=== PATIENT | male | born 1955 | race Caucasian/White ===

== ENCOUNTER 2021-01-10 07:54 | Observation (INO) | payer OTHER, SELFPAY ==
[~2021-01-10] VITALS: Ht 182.9 cm; Wt 49.0 kg
[2021-01-10 08:00] VITALS: BP_SYST 140
--- NOTE | 2021-01-10 08:00 | NUR ---
Patient to ER bed 5 to gown for evaluation. Side rails up. Report given to Elif CHADWICK.
--- NOTE | 2021-01-10 08:05 | NUR ---
Pt bib EMS from home with c/o syncope and dizziness. Pt reports kneeling down this morning and falling foward, pt hit his nose and has a small abrasion but denies LOC. V/S stable, Pt is afebrile. States he received his first dose of the covid vaccine last week and hasn't felt well since. No distress noted. H/O COPD, O2 sat 97% on RA.
--- NOTE | 2021-01-10 08:10 | NUR ---
ER Dr. Ricardo at bedside examining patient.
[2021-01-10] MEDS ORDERED: cefTRIAXone 1 GM IVPB PREMIX 50 ML IV ONE ×2 (08:12→08:15)
[2021-01-10] MEDS ORDERED: NS 1000 ML IV.SOLN IV ONE (08:15)
--- NOTE | 2021-01-10 08:15 | NUR ---
Lab at bedside for blood draw.
--- NOTE | 2021-01-10 08:20 | NUR ---
Radiology at bedside for CXR.
--- NOTE | 2021-01-10 08:30 | NUR ---
Pt refused Covid swab at this time, states he just had the vaccine and doesn't need it. Dr. Ricardo aware.
[2021-01-10 08:39] LABS: BASOPHILS # (AUTO) 0.1 K/uL (0.0-0.2); BASOPHILS % (AUTO) 2.1 % (0.0-2.0); EOSINOPHILS # (AUTO) 0.8 K/uL (0.0-0.4); EOSINOPHILS % (AUTO) 15.4 % (0.0-4.0); HEMATOCRIT 32.5 % (36-54); HEMOGLOBIN 10.6 g/dL (14.0-18.0); LYMPHOCYTES # (AUTO) 1.3 K/uL (1.0-5.5); LYMPHOCYTES % (AUTO) 25.3 % (20.5-51.5); MEAN CORPUSCULAR HEMOGLOBIN 28 pg (27-31); MEAN CORPUSCULAR HGB CONC 33 % (32-36); MEAN CORPUSCULAR VOLUME 86 fL (79.0-98.0); MONOCYTES # (AUTO) 0.1 K/uL (0.0-1.0); MONOCYTES % (AUTO) 2.3 % (1.7-9.3); NEUTROPHILS # (AUTO) 2.8 K/uL (1.8-7.7); NEUTROPHILS % (AUTO) 54.9 % (40.0-70.0); RED BLOOD CELL COUNT(AUTO) 3.77 MIL/uL (4.2-6.2); RED CELL DISTRIBUTION WIDTH 15.3 % (9.0-15.0); WHITE BLOOD COUNT (AUTO) 5.1 K/uL (4.8-10.8)
[2021-01-10 08:42] LABS: CALCIUM 8.3 mg/dL (8.4-11.0); CREATININE 0.82 mg/dL (0.55-1.30); POTASSIUM 3.9 mmol/L (3.5-5.1)
[2021-01-10 08:50] LABS: ALBUMIN 3.5 g/dL (3.4-4.8); TOTAL BILIRUBIN 1.3 mg/dL (0.0-1.0)
[2021-01-10 08:58] LABS: PLATELET COUNT (AUTO) 64 K/uL (130-430)
[2021-01-10] MEDS ORDERED: NACL 0.9% 1,000 ML IV ONE (09:45)
[2021-01-10] MEDS ORDERED: BUDE6HFA INH (09:54)
[2021-01-10] MEDS ORDERED: ALBMDI INH (09:54)
--- NOTE | 2021-01-10 09:55 | NUR ---
Med reconcilliation and belongings list completed.
[2021-01-10] MEDS ORDERED: KETOROLAC TROMETHAMINE 30 MG VIAL ONE (09:59)
[2021-01-10] MEDS ORDERED: KETOROLAC TROMETHAMINE 30 MG VIAL IVP ONE (10:00)
[2021-01-10] MEDS ORDERED: ALBUTEROL SULFATE 0.083% 2.5 MG/3 ML VIAL.NEB INH ONE ×2 (10:30→12:05)
[2021-01-10] MEDS ORDERED: IPRATROPIUM BROM 0.5 MG/2.5 ML VIAL.NEB (ATROVENT) INH ONE ×2 (10:30→12:05)
[2021-01-10] MEDS ORDERED: ALBUTEROL MDI INHALATION 8 GM INH INH PRN (11:15)
--- NOTE | 2021-01-10 11:18 | NUR ---
Unable to get results on rapid covid, per Dr. Ricardo, orders placed for PCR.
--- NOTE | 2021-01-10 11:22 | NUR ---
Talked to Any, senior windows engineer for bed assignment, stated she will call us back.
--- NOTE | 2021-01-10 11:35 | NUR ---
Patient will be admitted to care of Dr. Miner. Admitted to tele unit. Will go to room 124B. Belongings list completed. Complete and up to date summary report printed. SBAR report to be given at bedside with opportunity for questions. IV site intact and patent.
--- NOTE | 2021-01-10 11:41 | NUR ---
off to ct head
[2021-01-10] MEDS ORDERED: ALBUTEROL SULFATE 0.083% 2.5 MG/3 ML VIAL.NEB INH PRN (11:45)
--- NOTE | 2021-01-10 11:56 | NUR ---
CONSULTATION PAGED REASON FOR CONSULTATION:SYNCOPE WAS CPNSULT CALLED?Y PERSON WHO WAS NOTIFIED:MICHELLE CONSULTING PHYSICIAN:HEVER HUMMEL AUT[employer]UB TRAVEL COUNSELOR SPECIALTY:CARDIO AUTO CLUB TRAVEL COUNSELOR PHONE NUMBER:[phone] REQUESTING PHYSICIAN:ANGELES HALL
[2021-01-10] MEDS ORDERED: methylPREDNISolone SOD SUCC/PF 62.5 MG/ML VIAL IVP SCH (12:00)
[2021-01-10] MEDS ORDERED: IPRATROPIUM BROM 0.5 MG/2.5 ML VIAL.NEB (ATROVENT) INH PRN (12:00)
--- NOTE | 2021-01-10 12:02 | NUR ---
CONSULTATION PAGED REASON FOR CONSULTATION:SOB WAS CPNSULT CALLED?Y PERSON WHO WAS NOTIFIED:'S PAGER PAGED CONSULTING PHYSICIAN:ANNIE CASTILLO CONTINUITY DIRECTOR SPECIALTY:PULMONARY CONTINUITY DIRECTOR PHONE NUMBER:[phone] REQUESTING PHYSICIAN:ANGELES HALL
--- NOTE | 2021-01-10 12:14 | NUR ---
CONSULTATION PAGED REASON FOR CONSULTATION:SYNCOPE WAS CPNSULT CALLED?Y PERSON WHO WAS NOTIFIED:TOMER PUGH NOTIFIED VIA TEXT MESSAGE CONSULTING PHYSICIAN:CAMILLA ROMERO BUILDING PRESSURE WASHER SPECIALTY:NEURO BUILDING PRESSURE WASHER PHONE NUMBER:[phone] REQUESTING PHYSICIAN:ANGELES HALL
[2021-01-10] MEDS: BUDESONIDE/FORMOTEROL 160-4.5 mCg, 6 GM INHALER PO SCH ×2 (12:45→20:18)
[2021-01-10] MEDS: NACL 0.9% 1,000 ML IV SCH ×2 (12:57→20:19)
[2021-01-10] MEDS ORDERED: cefTRIAXone 1 GM in D5W 50 ML IV SCH (13:00)
[2021-01-10] MEDS ORDERED: ALBUTEROL MDI INHALATION 8 GM INH PO PRN (13:00)
[2021-01-10] MEDS: ALBUTEROL MDI INHALATION 8 GM INH PO SCH ×4 (13:00→20:18)
[2021-01-10 13:20] VITALS: BP_SYST 161
[2021-01-10 13:22] LABS: INR 1.1 (0.80-1.20); PROTHROMBIN TIME 10.8 SECS (9.5-12.5)
[2021-01-10 13:28] VITALS: BP_SYST 140
[2021-01-10] MEDS ORDERED: ALBUTEROL MDI INHALATION 8 GM INH INH SCH (15:00)
[2021-01-10 16:00] VITALS: BP_SYST 153
--- NOTE | 2021-01-10 16:30 | NUR ---
Patient went to bathroom with standby assistance from RN. No distress noted.
--- NOTE | 2021-01-10 18:20 | NUR ---
Patient is c/o pain on the nose, where he fell on today. Dr. Cazares is called. awaiting call back.
[2021-01-10 19:00] VITALS: BP_SYST 122
--- NOTE | 2021-01-10 19:15 | NUR ---
change of shift.pt.presents isolation status;droplet.covid19+pui status.pt.presents iv access location:lt.antecubital intact;patent iv fluids infusing.pt.capable to reposition self/ambulate.no c/o pain,nausea.general status stable.respiratory status stable;unlabored @room air.pt.presents wound;nose 2/t fall12/21/20.call light/telephone w/in access of the pt.
[2021-01-10 20:00] VITALS: BP_SYST 122
--- NOTE | 2021-01-10 20:00 | NUR ---
pt.assessed.v/s assessed values w/in normal limits.no c/o pain,nausea.iv access intact;patent iv fluids infusing.i have apprised the pt.,that snacks/beverages are available w/in the shift.pt.posited requests any food items.i have provided the snacks/juices.wound;nose dsg intact;slight drainage.pt.capable to reposition self.ambulate to/from restroom unassisted.call light/ telephone w/in access of the pt.
--- NOTE | 2021-01-10 21:00 | NUR ---
2100pmedications administered.no requests posited@this hour.
--- NOTE | 2021-01-10 22:00 | NUR ---
pt.assessed.presents quiescent affect;calm,resting.no c/o pain,nausea.iv access intact;patent iv fluids infusing.no requests posited@this hour.pt.capable to reposition self.call light/telephone w/in access of the pt.
[2021-01-11] VITALS: BP_SYST 151
--- NOTE | 2021-01-11 | NUR ---
pt.assessed.v/s assessed values w/in normal limits.no c/o pain,nausea.iv access intact;patent iv fluids infusing.pt.capable to reposition self.general status stable.respiratory status stable;unlabored.call light/telephone w/in access of the pt.
--- NOTE | 2021-01-11 02:00 | NUR ---
pt.assessed.pt.presents quiescent affect;calm,somnolent.per flacc pain mgx pt.absent facial grimaces/body posturing.pt.capable to reposition self.general status stable.respiratory status stable;unlabored.call light/telephone w/in access of the pt.
--- NOTE | 2021-01-11 04:00 | NUR ---
pt.assessed.pt.presents.quiescent affect;calm,somnolent.per flacc pain mgx pt.absent facial grimaces/body posturing. pt.capable to reposition self.general status stable.respiratory status stable;unlabored.call light/telephone w/in access of the pt.
[2021-01-11 04:21] LABS: ALBUMIN 2.9 g/dL (3.4-4.8); CALCIUM 7.8 mg/dL (8.4-11.0); CREATININE 0.64 mg/dL (0.55-1.30); POTASSIUM 4.4 mmol/L (3.5-5.1); THYROID STIMULATING HORMONE 0.86 uIu/mL (0.36-3.74); TOTAL BILIRUBIN 0.7 mg/dL (0.0-1.0)
[2021-01-11 04:31] LABS: BASOPHILS % (AUTO) 0.7 % (0.0-2.0); EOSINOPHILS % (AUTO) 0.8 % (0.0-4.0); HEMATOCRIT 26.6 % (36-54); HEMOGLOBIN 8.8 g/dL (14.0-18.0); LYMPHOCYTES # (AUTO) 0.7 K/uL (1.0-5.5); LYMPHOCYTES % (AUTO) 22.3 % (20.5-51.5); MEAN CORPUSCULAR HEMOGLOBIN 28 pg (27-31); MEAN CORPUSCULAR HGB CONC 33 % (32-36); MEAN CORPUSCULAR VOLUME 85 fL (79.0-98.0); MONOCYTES # (AUTO) 0.1 K/uL (0.0-1.0); MONOCYTES % (AUTO) 2.5 % (1.7-9.3); NEUTROPHILS # (AUTO) 2.2 K/uL (1.8-7.7); NEUTROPHILS % (AUTO) 73.7 % (40.0-70.0); PLATELET COUNT (AUTO) 53 K/uL (130-430); RED BLOOD CELL COUNT(AUTO) 3.12 MIL/uL (4.2-6.2); RED CELL DISTRIBUTION WIDTH 14.8 % (9.0-15.0)
--- NOTE | 2021-01-11 06:30 | NUR ---
pt.assessed.pt.presents no c/o pain,nausea.pt.posited requests water.i have provided the water.gracie has re-established iv access;location lt.antecubital;iv fluids re-connected initiated administration.general status stable.respiratory status stable.02- sat%=94%.pt.capable to reposition/ambulate.call light/telephone w/in access of the pt.nasal dsg intact.
--- NOTE | 2021-01-11 08:00 | NUR ---
RECEIVED PT IN BED, PT IS AAOX4, DENIES PAIN, DENIES SOB. PT WANTED TO GO HOME, TOLD HIM WE NEED TO WAIT FOR PRIMARY DOCTOR TO DECIDE DC.
[2021-01-11 08:15] VITALS: BP_SYST 138
[2021-01-11] MEDS: NACL 0.9% 1,000 ML IV SCH (08:36)
[2021-01-11] MEDS: BUDESONIDE/FORMOTEROL 160-4.5 mCg, 6 GM INHALER PO SCH (08:38)
[2021-01-11] MEDS ORDERED: THIAMINE HCL 100 MG TABLET PO SCH (09:00)
[2021-01-11] MEDS ORDERED: FOLIC ACID 1 MG TABLET PO SCH (09:00)
[2021-01-11] MEDS ORDERED: CHOLECALCIFEROL (VITAMIN D3) 2,000 UNIT TABLET PO SCH (09:00)
[2021-01-11 11:32] VITALS: BP_SYST 140
--- NOTE | 2021-01-11 12:04 | NUR ---
STOCK GRADER DR BRADFORD WAS CALLED, RE: DISCHARGE ORDER. SPOKE TO ANGELITO.
[2021-01-11 12:05] VITALS: BP_SYST 140
--- NOTE | 2021-01-11 12:59 | NUR ---
D/C Patient Patient given medication reconciliation form and D/C instructions. Exit Care provided. Patient verbalized understanding. MD discussed with patient the results and treatment provided. Ambulatory with steady gait for discharge to home. Patient in stable condition, ID band removed. IV catheter removed, intact and dressing applied, no active bleeding. NO Rx given. Patient educated on pain management. All belongings sent with patient. pt educated on the continuation of Covid 19 precaution such as staying at home and social distancing and masking. also educated on the signs and symptoms of syncope and reminded to drink on when thirsty.
--- NOTE | 2021-01-14 10:35 | NUR ---
Discharge Follow Up Phone Call Phoned patient,[phone], on 01/12/21 and left a voicemail message with reminder to make follow up appointment, offer of assistance and Social Service contact information. Also phoned patient on 01/13/21 and 01/14/21. Each time the line was busy with multiple tries. No further calls will be made.
--- NOTE | 2021-01-26 14:49 | NUR ---
END TIME LATE ENTRY CEFTRIAXONE STARTED ON 01/10/21 AT 1301 COMPLETED AND DISCONTINUED AT 1345 IVF OF NS AT 100ML/HOUR STARTED ON 01/11/21 AT 0836 DISCONTINUED PRIOR TO PATIENT'S DISCHARGE ON 01/11/21 AT 1259
== END 2021-01-11 13:00 | disposition home or self-care (01) ==
LOC: SED 07:54 → INTOOBSV 10:59 → STU 10:59
PROVIDERS: ADMIT Internal Medicine Hospice and Palliative Medicine; ATTEND Internal Medicine Hospice and Palliative Medicine
DX: R55 Syncope and collapse (principal); Z20.822 Contact with and (suspected) exposure to COVID-19; E86.0 Dehydration; J44.1 Chronic obstructive pulmonary disease with (acute) exacerbation; E87.1 Hypo-osmolality and hyponatremia; I10 Essential (primary) hypertension; D69.6 Thrombocytopenia, unspecified; S01.21XA Laceration without foreign body of nose, initial encounter; R04.0 Epistaxis; E87.2 Acidosis; R41.82 Altered mental status, unspecified; F10.20 Alcohol dependence, uncomplicated; W19.XXXA Unspecified fall, initial encounter; Y93.89 Activity, other specified; Y92.89 Other specified places as the place of occurrence of the external cause; Z87.891 Personal history of nicotine dependence; Z79.899 Other long term (current) drug therapy
CPT/HCPCS: 36415 ×2; 70450; 71045; 76376; 76700; 80053 ×2; 80061; 83605; 83880 ×2; 84443; 84484 ×2; 85025 ×2; 85610; 85730; 87040; 87426; 93005 ×2; 93306; 93880; 94640 ×2; 94760; 96361 ×2; 96365; 96366; 96375 ×2; 99285; G0378; J0696 ×2; J1885; J2930; J7060; J7613; U0003

== ENCOUNTER 2021-02-21 13:00 | Inpatient (IN) | payer OTHER, SELFPAY ==
[~2021-02-21] VITALS: Ht 182.9 cm; Wt 47.6 kg
[~2021-02-21 13:00] MED LIST: ALBMDI INH; BUDE6HFA INH
[2021-02-21 13:07] VITALS: BP_SYST 138
[2021-02-21] MEDS ORDERED: IPRATROPIUM BROM 0.5 MG/2.5 ML VIAL.NEB (ATROVENT) INH ONE (13:15)
[2021-02-21] MEDS ORDERED: ALBUTEROL SULFATE 0.083% 2.5 MG/3 ML VIAL.NEB INH ONE (13:15)
[2021-02-21] MEDS ORDERED: methylPREDNISolone SOD SUCC/PF 62.5 MG/ML VIAL IVP ONE (13:15)
[2021-02-21] MEDS ORDERED: cefTRIAXone 1 GM in D5W 50 ML IV ONE (13:15)
[2021-02-21] MEDS ORDERED: AZITHROMYCIN 500 MG in NS 250 ML IV ONE (13:15)
[2021-02-21] MEDS ORDERED: MAGNESIUM SULFATE 50 ML IV ONE (13:15)
[2021-02-21] MEDS ORDERED: AZITHROMYCIN 500 MG/VIAL (ZITHROMAX) IV ONE (13:21)
[2021-02-21] MEDS ORDERED: cefTRIAXone 1 GM VIAL ONE (13:21)
[2021-02-21 13:40] LABS: HEMOGLOBIN 7.1 g/dL (14.0-18.0); MONOCYTES % (AUTO) 2.7 % (1.7-9.3)
[2021-02-21] MEDS ORDERED: NACL 0.9% 1,000 ML IV ONE (13:45)
[2021-02-21 13:50] LABS: BASOPHILS # (AUTO) 0.3 K/uL (0.0-0.2); BASOPHILS % (AUTO) 2.5 % (0.0-2.0); CALCIUM 8.7 mg/dL (8.4-11.0); CREATININE 0.85 mg/dL (0.55-1.30); EOSINOPHILS # (AUTO) 1.4 K/uL (0.0-0.4); EOSINOPHILS % (AUTO) 11.3 % (0.0-4.0); LYMPHOCYTES # (AUTO) 5.1 K/uL (1.0-5.5); LYMPHOCYTES % (AUTO) 39.7 % (20.5-51.5); MEAN CORPUSCULAR HEMOGLOBIN 28 pg (27-31); MEAN CORPUSCULAR HGB CONC 32 % (32-36); MEAN CORPUSCULAR VOLUME 85 fL (79.0-98.0); MONOCYTES # (AUTO) 0.4 K/uL (0.0-1.0); NEUTROPHILS # (AUTO) 5.6 K/uL (1.8-7.7); NEUTROPHILS % (AUTO) 43.8 % (40.0-70.0); POTASSIUM 4.2 mmol/L (3.5-5.1); RED BLOOD CELL COUNT(AUTO) 2.57 MIL/uL (4.2-6.2); RED CELL DISTRIBUTION WIDTH 14.8 % (9.0-15.0); WHITE BLOOD COUNT (AUTO) 12.9 K/uL (4.8-10.8)
[2021-02-21 13:56] LABS: HEMATOCRIT 21.8 % (36-54)
[2021-02-21 13:57] LABS: PLATELET COUNT (AUTO) 34 K/uL (130-430)
[2021-02-21 14:02] LABS: ALBUMIN 3.3 g/dL (3.4-4.8); TOTAL BILIRUBIN 1.5 mg/dL (0.0-1.0)
[2021-02-21 14:18] LABS: C-REACTIVE PROTEIN QUANT 12.4 mg/dL (0-0.5)
[2021-02-21 14:21] LABS: PROTHROMBIN TIME 10.4 SECS (9.5-12.5)
[2021-02-21] MEDS ORDERED: PANTOPRAZOLE SODIUM 40 MG/VIAL (PROTONIX) IVP ONE (14:30)
[2021-02-21] MEDS ORDERED: PIPERACILLIN/TAZO 3.375 GM in NS 50 ML IV ONE (14:30)
[2021-02-21] MEDS ORDERED: PIPERACILLIN/TAZOBACTAM 3.375 GM/VIAL (ZOSYN) IV ONE (14:39)
[2021-02-21 17:00] VITALS: BP_SYST 99
[2021-02-21] MEDS ORDERED: IPRATROPIUM/ALBUTEROL SULFATE 3 ML AMPUL.NEB (DUONEB) ONE (17:22)
[2021-02-21] MEDS ORDERED: FUROSEMIDE 40 MG/4 ML VIAL IVP ONE (18:00)
[2021-02-21] MEDS: LEVOFLOXACIN IN DEXTROSE 5 % 100 ML IV SCH (18:41)
[2021-02-21] MEDS: ALBUTEROL SULFATE 0.083% 2.5 MG/3 ML VIAL.NEB INH SCH (19:55)
[2021-02-21] MEDS: methylPREDNISolone SOD SUCC 40 MG/ML VIAL IVP SCH (23:03)
[2021-02-22] VITALS: BP_SYST 93
[2021-02-22] MEDS: ALBUTEROL SULFATE 0.083% 2.5 MG/3 ML VIAL.NEB INH SCH ×3 (01:00→12:06)
[2021-02-22] MEDS: methylPREDNISolone SOD SUCC 40 MG/ML VIAL IVP SCH ×3 (06:14→21:01)
[2021-02-22 06:21] LABS: BASOPHILS # (AUTO) 0.2 K/uL (0.0-0.2); BASOPHILS % (AUTO) 2.5 % (0.0-2.0); EOSINOPHILS # (AUTO) 0.3 K/uL (0.0-0.4); EOSINOPHILS % (AUTO) 4.1 % (0.0-4.0); HEMATOCRIT 29.9 % (36-54); HEMOGLOBIN 9.7 g/dL (14.0-18.0); LYMPHOCYTES # (AUTO) 2.6 K/uL (1.0-5.5); LYMPHOCYTES % (AUTO) 37.6 % (20.5-51.5); MEAN CORPUSCULAR HEMOGLOBIN 28 pg (27-31); MEAN CORPUSCULAR HGB CONC 32 % (32-36); MEAN CORPUSCULAR VOLUME 86 fL (79.0-98.0); MONOCYTES # (AUTO) 0.1 K/uL (0.0-1.0); NEUTROPHILS # (AUTO) 3.7 K/uL (1.8-7.7); NEUTROPHILS % (AUTO) 53.8 % (40.0-70.0); RED BLOOD CELL COUNT(AUTO) 3.46 MIL/uL (4.2-6.2); RED CELL DISTRIBUTION WIDTH 15.6 % (9.0-15.0); WHITE BLOOD COUNT (AUTO) 6.8 K/uL (4.8-10.8)
[2021-02-22 06:35] LABS: ALBUMIN 2.7 g/dL (3.4-4.8); CALCIUM 8.1 mg/dL (8.4-11.0); CREATININE 0.68 mg/dL (0.55-1.30); POTASSIUM 4.4 mmol/L (3.5-5.1)
[2021-02-22 06:44] LABS: PLATELET COUNT (AUTO) 25 K/uL (130-430)
[2021-02-22 07:38] LABS: RETICULOCYTE COUNT 5.1 % (0.5-1.5)
[2021-02-22] MEDS ORDERED: IPRATROPIUM/ALBUTEROL SULFATE 3 ML AMPUL.NEB (DUONEB) INH ONE (08:00)
[2021-02-22 08:33] VITALS: BP_SYST 99
[2021-02-22] MEDS ORDERED: MAGNESIUM CITRATE 300 ML ORAL SOLUTION PO ONE (10:15)
[2021-02-22 11:27] VITALS: BP_SYST 147
[2021-02-22] MEDS ORDERED: THIAMINE HCL 100 MG TABLET PO ONE (13:15)
[2021-02-22] MEDS ORDERED: chlordiazePOXIDE HCL 25 MG CAPSULE PO ONE (13:15)
[2021-02-22] MEDS ORDERED: PANTOPRAZOLE SODIUM 40 MG/VIAL (PROTONIX) ONE (14:19)
[2021-02-22] MEDS: PANTOPRAZOLE SODIUM 80 MG in NS 100 ML IV SCH (14:23)
[2021-02-22 14:25] LABS: HEMATOCRIT 31.5 % (36-54); HEMOGLOBIN 10.3 g/dL (14.0-18.0)
[2021-02-22 14:59] LABS: TOTAL IRON BIND. CAPACITY 246 ug/dL (250-450)
[2021-02-22 15:16] VITALS: BP_SYST 116
[2021-02-22] MEDS: IPRATROPIUM/ALBUTEROL SULFATE 3 ML AMPUL.NEB (DUONEB) INH SCH ×3 (15:38→23:32)
[2021-02-22] MEDS ORDERED: BISACODYL 5 MG TABLET.DR (DULCOLAX) PO ONE (17:00)
[2021-02-22] MEDS ORDERED: GOLYTELY / COLYTE SOLUTION 4 LITERS PO ONE (18:00)
[2021-02-22] MEDS: LEVOFLOXACIN IN DEXTROSE 5 % 100 ML IV SCH (18:34)
[2021-02-22 20:10] VITALS: BP_SYST 115
[2021-02-22] MEDS: chlordiazePOXIDE HCL 25 MG CAPSULE PO SCH (21:00)
[2021-02-22 23:18] LABS: HEMATOCRIT 29.9 % (36-54); HEMOGLOBIN 9.8 g/dL (14.0-18.0)
[2021-02-23 00:42] VITALS: BP_SYST 101
[2021-02-23] MEDS: IPRATROPIUM/ALBUTEROL SULFATE 3 ML AMPUL.NEB (DUONEB) INH SCH ×6 (03:00→23:00)
[2021-02-23] MEDS: methylPREDNISolone SOD SUCC 40 MG/ML VIAL IVP SCH ×3 (06:21→22:43)
[2021-02-23 07:02] LABS: HEMATOCRIT 29.6 % (36-54); HEMOGLOBIN 9.8 g/dL (14.0-18.0)
[2021-02-23 07:06] LABS: FOLATE (FOLIC ACID) 7.9 ng/mL (>3.0)
[2021-02-23] MEDS ORDERED: SIMETHICONE 40 MG/0.6 ML ML ONE (07:28)
[2021-02-23] MEDS ORDERED: MEPERIDINE 100 MG INJ. 100 MG/ML VIAL ONE (07:28)
[2021-02-23 08:00] VITALS: BP_SYST 111
[2021-02-23] MEDS: MIDAZOLAM HCL 5 MG/5 ML VIAL ONE ×4 (10:21→10:41)
[2021-02-23] MEDS ORDERED: PHENYLEPH/MINERAL OIL/PETROLAT 45 GM OINT.APPL TP PRN (11:45)
[2021-02-23] MEDS: chlordiazePOXIDE HCL 25 MG CAPSULE PO SCH ×2 (12:17→20:39)
[2021-02-23] MEDS: THIAMINE HCL 100 MG TABLET PO SCH (12:17)
[2021-02-23 14:10] LABS: HEMATOCRIT 30.7 % (36-54); HEMOGLOBIN 10.2 g/dL (14.0-18.0)
[2021-02-23] MEDS: PANTOPRAZOLE SODIUM 80 MG in NS 100 ML IV SCH (14:47)
[2021-02-23 15:28] VITALS: BP_SYST 121
[2021-02-23] MEDS: LEVOFLOXACIN IN DEXTROSE 5 % 100 ML IV SCH (16:08)
[2021-02-23] MEDS: guaiFENesin/DEXTROMETHORPHAN 10 ML UDC PO PRN ×2 (16:11→20:39)
[2021-02-23 20:15] VITALS: BP_SYST 126
[2021-02-23] MEDS: PANTOPRAZOLE SODIUM 40 MG TAB PO SCH (20:38)
[2021-02-23 22:03] LABS: HEMATOCRIT 31.9 % (36-54); HEMOGLOBIN 10.5 g/dL (14.0-18.0)
[2021-02-24 00:04] VITALS: BP_SYST 116
[2021-02-24] MEDS: methylPREDNISolone SOD SUCC 40 MG/ML VIAL IVP SCH (06:16)
[2021-02-24] MEDS: IPRATROPIUM/ALBUTEROL SULFATE 3 ML AMPUL.NEB (DUONEB) INH SCH ×2 (06:24→11:14)
[2021-02-24 07:15] LABS: BASOPHILS # (AUTO) 0.1 K/uL (0.0-0.2); BASOPHILS % (AUTO) 2.2 % (0.0-2.0); EOSINOPHILS % (AUTO) 0.1 % (0.0-4.0); HEMATOCRIT 31.8 % (36-54); HEMOGLOBIN 10.4 g/dL (14.0-18.0); LYMPHOCYTES # (AUTO) 1.3 K/uL (1.0-5.5); LYMPHOCYTES % (AUTO) 26.8 % (20.5-51.5); MEAN CORPUSCULAR HEMOGLOBIN 28 pg (27-31); MEAN CORPUSCULAR HGB CONC 33 % (32-36); MEAN CORPUSCULAR VOLUME 86 fL (79.0-98.0); MONOCYTES # (AUTO) 0.2 K/uL (0.0-1.0); NEUTROPHILS # (AUTO) 3.3 K/uL (1.8-7.7); NEUTROPHILS % (AUTO) 66.9 % (40.0-70.0); RED CELL DISTRIBUTION WIDTH 15.8 % (9.0-15.0)
[2021-02-24 07:20] LABS: PLATELET COUNT (AUTO) 36 K/uL (130-430)
[2021-02-24 08:00] VITALS: BP_SYST 116
[2021-02-24] MEDS: chlordiazePOXIDE HCL 25 MG CAPSULE PO SCH (08:40)
[2021-02-24] MEDS: PANTOPRAZOLE SODIUM 40 MG TAB PO SCH (08:41)
[2021-02-24] MEDS: THIAMINE HCL 100 MG TABLET PO SCH (08:41)
[2021-02-24 12:31] VITALS: BP_SYST 122
[2021-02-24 12:34] VITALS: BP_SYST 122
[2021-02-24] MEDS ORDERED: MEDROL (12:44)
[2021-02-24] MEDS ORDERED: PRO40 PO (12:44)
[2021-02-24] MEDS ORDERED: ALBU2.5V7 INH (12:45)
[2021-02-24] MEDS ORDERED: MED4 PO (12:48)
[2021-02-24 16:29] VITALS: BP_SYST 141
== END 2021-02-24 13:40 | disposition home or self-care (01) | DRG 377 ==
LOC: SED 13:00 → STU 16:09
PROVIDERS: ADMIT Internal Medicine; ATTEND Internal Medicine
PROC: 30233N1 Transfusion of Nonautologous Red Blood Cells into Peripheral Vein, Percutaneous Approach (ICD-10-PCS; principal; 2021-02-21)
PROC: 30233R1 Transfusion of Nonautologous Platelets into Peripheral Vein, Percutaneous Approach (ICD-10-PCS; 2021-02-22)
PROC: 0DB78ZX Excision of Stomach, Pylorus, Via Natural or Artificial Opening Endoscopic, Diagnostic (ICD-10-PCS; 2021-02-23)
PROC: 0DJD8ZZ Inspection of Lower Intestinal Tract, Via Natural or Artificial Opening Endoscopic (ICD-10-PCS; 2021-02-23)
PROC: 0DB98ZX Excision of Duodenum, Via Natural or Artificial Opening Endoscopic, Diagnostic (ICD-10-PCS; 2021-02-23 10:00)
DX: K29.71 Gastritis, unspecified, with bleeding (principal); J96.21 Acute and chronic respiratory failure with hypoxia; J44.1 Chronic obstructive pulmonary disease with (acute) exacerbation; K64.8 Other hemorrhoids; K64.4 Residual hemorrhoidal skin tags; D50.9 Iron deficiency anemia, unspecified; D69.6 Thrombocytopenia, unspecified; K29.80 Duodenitis without bleeding; K44.9 Diaphragmatic hernia without obstruction or gangrene; Z20.822 Contact with and (suspected) exposure to COVID-19; F10.10 Alcohol abuse, uncomplicated; K76.9 Liver disease, unspecified; K62.9 Disease of anus and rectum, unspecified; Z79.899 Other long term (current) drug therapy; Z87.891 Personal history of nicotine dependence; Z71.41 Alcohol abuse counseling and surveillance of alcoholic
CPT/HCPCS: 36415; 36600; 43239; 45378; 71045; 76376; 80053; 82272; 82607; 82728; 82746; 82803-TC; 82962; 83540-TC; 83550-TC; 83880; 84484; 85018-TC; 85025; 85044-TC; 85610-TC; 86140; 86886; 86900; 86901; 86920; 87081; 88305; 88312; 88313; 93005; 94640; 94660; 94760; 96365; 96367; 96368; 96375; 99291; C9113; G0378; J0456; J0696; J1030; J1940; J1956; J2175; J2250; J2543; J2930; J3475; J7030; J7040; J7050; J7613; P9021; P9034; Q9967